=== PATIENT | female | born 1985 | race Caucasian/White ===

== ENCOUNTER 2017-12-06 15:03 | Day surgery (SDC) | payer OTHER ==
[2017-12-06 16:04] LABS: #Basophils 0.1 thou/uL (0.0-0.2); #Eosinphils 0.2 thou/uL (0.0-0.7); #Lymphocytes 1.8 thou/uL (1.20-3.40); #Monocytes 0.3 thou/uL (0.11-0.59); #Neutrophils 2.7 thou/uL (1.40-6.50); %Basophils 1.2 % (0.0-1.0); %Eosinophils 3.3 % (0.0-10.0); %Lymphocytes 35.3 % (21.0-51.0); %Monocytes 6.1 % (0.0-10.0); %Neutrophils 54.2 % (42.0-75.0); Hemoglobin 12.4 g/dL (12.0-16.0); Mean Corpuscular HGB CONC 33.5 g/dL (32.0-36.0); Mean Corpuscular Hemoglobin 30.5 pg (27.0-31.0); Mean Corpuscular Volume 91.1 fl (81.0-99.0); Mean Platelet Volume 6.2 fL (7.4-10.4); Platelet Count 232 thou/uL (130-400); RBC Distribution Width 11.9 % (11.5-14.5); Red Blood Cell (RBC) Count 4.06 mill/uL (4.20-5.40)
[2017-12-06] MEDS ORDERED: Ondansetron HCl/PF 4 MG/2 ML Vial ONE (16:42)
[2017-12-06] MEDS ORDERED: Midazolam HCl 2 mg/2 ml Vial ONE (16:42)
[2017-12-06] MEDS ORDERED: PROPOFOL 200 MG/20 ML VIAL ONE (16:44)
[2017-12-06] MEDS ORDERED: Ketorolac Tromethamine 30 MG/ML VIAL ONE (16:44)
[2017-12-06] MEDS ORDERED: Dexamethasone 20 MG/5 ML VIAL ONE (16:44)
[2017-12-06] MEDS ORDERED: CEFAZOLIN/Water 2 GM/20 ML SYRINGE ONE (16:56)
[2017-12-06] MEDS ORDERED: Fentanyl 100 MCG/2 ML VIAL ONE ×2 (16:57→18:05)
[2017-12-06] MEDS ORDERED: Methylergonovine 0.2 MG/ML VIAL IM SCH (18:15)
[2017-12-06] MEDS ORDERED: Methylergonovine 0.2 MG TAB PO SCH (18:15)
--- NOTE | 2017-12-06 18:27 | OP ---
DATE OF PROCEDURE: 12/06/2017 ATTENDING STAFF PHYSICIAN: Itz Hollis M.D. SURGEON: Itz Hollis M.D. PREOPERATIVE DIAGNOSIS: Missed at 9 weeks. POSTOPERATIVE DIAGNOSIS: Missed at 9 weeks. PROCEDURE: Dilatation and curettage (sharp dissection). ANESTHESIA: IV sedation. FINDINGS: 1. Intrauterine at 9 weeks EGA with no cardiac activity. 2. Following beta-hCG. 3. Products of conception. SPECIMENS REMOVED: Products of conception. COMPLICATIONS: None. BLOOD LOSS: Minimal. PROCEDURE IN DETAIL: After thorough consent and counseling, Mrs. Eagle was taken to the operating room and adequate anesthesia was obtained via deep IV sedation. The patient was placed in the [employer] cane leg holders in the high lie position. Pelvic examination under anesthesia was performed. Findi ngs were consistent with that in the clinical setting. The patient was noted to have an 8-week size uterus which was mobile. No adnexal masses noted. The patient was then prepped and draped in usual sterile fashion for vaginal surgery. In and out catheterization of bladder was performed which was d rained of clear urine. Attention was then turned to performing dilatation and curettage. A weighted speculum was placed in the vaginal canal and visualization of the cervix was obtained. A single-tooth tenaculum was placed on the anterior lip of the cervix for traction. The uterus sounded 10 cm. Using Taylor dilators, serial dilatation was performed. Suction of sharp curettage was then carried out removing all products of conception. The tissue obtained was sent to pathology for confi rmation. The patient tolerated the procedure well. Good hemostasis was noted. Following the proced ure, the patient was awakened and taken to recovery room in good condition. Immediately following walters rgery, the patient and family were made aware of the surgical procedure and operative findings. Ques tions were answered to their satisfaction. Ashley will follow up with me in 2 weeks for postoperati ve evaluation and preconceptional counseling. The patient and her reported they are very radha reciative of the care rendered here at [facility] this evening.
== END 2017-12-06 19:43 | disposition home or self-care (01) ==
LOC: EEVIPCON 15:03 → SDC 15:03
PROVIDERS: ATTEND Obstetrics & Gynecology
PROC: 10D17Z9 Manual Extraction of Products of Conception, Retained, Via Natural or Artificial Opening (ICD-10-PCS; principal; 2017-12-06)
DX: O02.1 Missed abortion (principal)
CPT/HCPCS: 36415; 85025; 86850; 86900; 86901; 88305; 96372; 96374; J0131; J1100; J1885; J2210; J2250; J2405; J2704; J3010

== ENCOUNTER 2018-10-29 07:47 | Inpatient (IN) | payer OTHER ==
[2018-10-30] MEDS ORDERED: Misoprostol 200 MCG TAB PR PRN (21:46)
[2018-10-30] MEDS ORDERED: NS w/ Oxytocin 10 units 500 ML IV SCH ×2 (21:46)
[2018-10-30] MEDS ORDERED: Zolpidem Tartrate 5 MG TAB PO PRN (21:46)
[2018-10-30] MEDS ORDERED: Ibuprofen 800 MG TAB PO PRN (21:46)
[2018-10-30] MEDS ORDERED: Diphenoxylate HCl/Atropine Tablet PO PRN ×2 (21:46)
[2018-10-30] MEDS ORDERED: Ondansetron PF 4 MG/2 ML Vial IVP PRN (21:46)
[2018-10-30] MEDS ORDERED: HYDROcodone/Acetaminophen 5/325 mg Tablet PO PRN ×2 (21:46)
[2018-10-30] MEDS ORDERED: Promethazine HCl 25 MG/ML VIAL IM PRN (21:46)
[2018-10-30] MEDS: Lactated Ringer's 1,000 ML IV SCH (21:46)
[2018-10-30] MEDS ORDERED: Lidocaine 1% (PF) 30 ML VIAL SC PRN (21:46)
[2018-10-30] MEDS ORDERED: NS / Oxytocin 40 units/1000ml 1,000 ML IV PRN (21:46)
[2018-10-30] MEDS ORDERED: Butorphanol Tartrate 1 MG/ML VIAL SLOW IVP PRN (21:46)
[2018-10-30] MEDS ORDERED: Acetaminophen 500 MG TAB PO PRN (21:46)
[2018-10-30] MEDS ORDERED: Docusate 100 MG CAP PO PRN (21:46)
[2018-10-30 21:48] VITALS: BMI 27.3
[2018-10-30 22:00] LABS: Hemoglobin 13.2 g/dL (12.0-16.0); Mean Corpuscular HGB CONC 35.2 g/dL (32.0-36.0); Mean Corpuscular Volume 88.2 fL (78.0-98.0); Mean Platelet Volume 7.5 fL (7.4-10.4); Platelet Count 212 thou/uL (130-400); RBC Distribution Width 12.1 % (11.5-14.5); Red Blood Cell (RBC) Count 4.24 mill/uL (4.20-5.40); White Blood Cell (WBC) Count 8.2 thou/uL (4.8-10.8)
[2018-10-30] MEDS: Misoprostol 100 MCG TAB VAG SCH (22:10)
[2018-10-30 22:44] LABS: Syphilis Antibody Nonreactive (Nonreactive); Syphilis Antibody Index 0.04 S/CO (<1.00 Non-Reactive)
[2018-10-30 23:03] LABS: Hep B Surf Ag Non-Reactive S/CO (NonReactive)
[2018-10-31] MEDS: Misoprostol 100 MCG TAB VAG SCH ×2 (01:16→09:54)
[2018-10-31] MEDS: Lactated Ringer's 1,000 ML IV SCH ×2 (04:15→09:44)
[2018-10-31] MEDS ORDERED: Fentanyl 4 mcg/Bup 0.1% Cadd 100 ML ONE ×2 (08:08→14:25)
[2018-10-31] MEDS ORDERED: Lidocaine 1.5% w/Epi 1:200K 30 ML VIAL (Epid Use) ONE (09:23)
[2018-10-31] MEDS ORDERED: Eucerin (Mineral Oil/Petrolatum,White) 30 gm Jar TOP PRN (09:49)
[2018-10-31] MEDS ORDERED: Lactated Ringer's 500 ML IV PRN (09:49)
[2018-10-31] MEDS ORDERED: Acetaminophen 325 MG TAB PO PRN (09:49)
[2018-10-31] MEDS ORDERED: Naloxone HCl 0.4 mg/ml Vial IVP PRN ×2 (09:49)
[2018-10-31] MEDS ORDERED: ePHEDrine/0.9% NaCl/PF SYRINGE 50 mg/10 ml SLOW IVP PRN (09:49)
[2018-10-31] MEDS ORDERED: Ondansetron PF 4 MG/2 ML Vial IVP PRN ×2 (09:49→17:30)
[2018-10-31] MEDS ORDERED: diphenhydrAMINE 50 MG/ML VIAL IVP PRN (09:49)
[2018-10-31] MEDS ORDERED: Promethazine HCl 25 MG/ML VIAL IM PRN (09:49)
[2018-10-31] MEDS ORDERED: Communication Order-Pharmacy FS SCH (10:00)
[2018-10-31] MEDS ORDERED: Fentanyl 4 mcg/Bupivacaine 0.1% Cassette 100 ML EPIDURAL SCH (10:00)
[2018-10-31] MEDS ORDERED: Lidocaine 2% MPF 10 ML AMP (For Epidural Use) ONE (11:11)
[2018-10-31 17:12] LABS: Actual Bicarbonate (HCO3a) 22.2 mEq/L (22-28); Analyzer IN Cardio OR
[2018-10-31] MEDS ORDERED: Zolpidem Tartrate 5 MG TAB PO PRN (17:30)
[2018-10-31] MEDS ORDERED: Milk Of Magnesia 30 ML UDCUP PO PRN (17:30)
[2018-10-31] MEDS ORDERED: Bisacodyl 10 MG SUPP PR PRN (17:30)
[2018-10-31] MEDS ORDERED: NS / Oxytocin 40 units/1000ml 1,000 ML IV SCH (17:30)
[2018-10-31] MEDS ORDERED: Benzocaine/Menthol 20-0.5% 60 ML CAN TOP PRN (17:30)
[2018-10-31] MEDS ORDERED: Acetaminophen/Codeine 30-300mg Tablet PO PRN ×2 (17:30)
[2018-10-31] MEDS ORDERED: Lanolin Ointment 7 GM TUBE TOP PRN (17:30)
[2018-10-31] MEDS ORDERED: Misoprostol 200 MCG TAB VAG PRN (17:30)
[2018-10-31] MEDS ORDERED: Preparation H Ointment 28 GM TUBE PR PRN (17:30)
[2018-10-31] MEDS ORDERED: diphenhydrAMINE 25 MG CAP PO PRN (17:30)
--- NOTE | 2018-10-31 18:47 | RAD ---
PELVIS ONE VIEW: History: Lost Allis clamp post vaginal delivery. FINDINGS: There is a mass in the pelvis, evidence for enlarged uterus and/or distended bladder. No eviden ce for a metal or significantly abnormal opaque foreign body. IMPRESSION: No evidence for foreign body. POS: [facility]
[2018-10-31] MEDS: Ibuprofen 800 MG TAB PO SCH (21:09)
[2018-10-31] MEDS: Docusate Calcium (SURFAK) 240 MG CAP PO SCH (21:09)
[2018-11-01] MEDS: Misoprostol 100 MCG TAB VAG SCH (01:26)
[2018-11-01] MEDS: Ibuprofen 800 MG TAB PO SCH ×3 (04:57→21:36)
[2018-11-01 05:52] LABS: Hemoglobin 10.9 g/dL (12.0-16.0); Mean Corpuscular HGB CONC 34.3 g/dL (32.0-36.0); Mean Corpuscular Volume 90.3 fL (78.0-98.0); Mean Platelet Volume 7.8 fL (7.4-10.4); Platelet Count 163 thou/uL (130-400); RBC Distribution Width 12.2 % (11.5-14.5); Red Blood Cell (RBC) Count 3.54 mill/uL (4.20-5.40)
[2018-11-01] MEDS ORDERED: Adacel (T-DAP) 0.5 ML SYRINGE IM ONE (09:00)
[2018-11-01] MEDS: Docusate Calcium (SURFAK) 240 MG CAP PO SCH ×2 (09:11→21:36)
[2018-11-01] MEDS: Ferrous Sulfate 325 MG TAB PO SCH ×2 (09:11→18:02)
[2018-11-01] MEDS: Prenatal Vitamin 1 TAB PO SCH (09:13)
[2018-11-01] MEDS ORDERED: Ondansetron ODT 4 MG TAB PO PRN (14:20)
[2018-11-01 22:28] VITALS: BP 124/67; TEMP 98.1
[2018-11-02] MEDS: Ibuprofen 800 MG TAB PO SCH (06:13)
[2018-11-02] MEDS: Ferrous Sulfate 325 MG TAB PO SCH (09:30)
[2018-11-02] MEDS: Docusate Calcium (SURFAK) 240 MG CAP PO SCH (09:31)
[2018-11-02] MEDS: Prenatal Vitamin 1 TAB PO SCH ×2 (09:31→09:33)
== END 2018-11-02 14:10 | disposition home or self-care (01) | DRG 807 ==
LOC: L&D 10-30 20:59 → 3SW 10-31 20:36
PROVIDERS: ADMIT Obstetrics & Gynecology; ATTEND Obstetrics & Gynecology
PROC: 10E0XZZ Delivery of Products of Conception, External Approach (ICD-10-PCS; principal; 2018-10-31)
PROC: 10907ZC Drainage of Amniotic Fluid, Therapeutic from Products of Conception, Via Natural or Artificial Opening (ICD-10-PCS; 2018-10-31)
PROC: 3E033VJ Introduction of Other Hormone into Peripheral Vein, Percutaneous Approach (ICD-10-PCS; 2018-10-31)
PROC: 3E0P7VZ Introduction of Hormone into Female Reproductive, Via Natural or Artificial Opening (ICD-10-PCS; 2018-10-31)
PROC: 0W8NXZZ Division of Female Perineum, External Approach (ICD-10-PCS; 2018-10-31)
DX: O48.0 Post-term pregnancy (principal); Z37.0 Single live birth; Z3A.40 40 weeks gestation of pregnancy; O69.1XX0 Labor and delivery complicated by cord around neck, with compression, not applicable or unspecified; O77.0 Labor and delivery complicated by meconium in amniotic fluid; O76 Abnormality in fetal heart rate and rhythm complicating labor and delivery
CPT/HCPCS: 36415; 51702; 72170; 82805; 85027; 86780; 86850; 86900; 86901; 87340; J2001; Q0162